=== PATIENT | male | born 1960 | race Hispanic/Latino ===

== ENCOUNTER → 2018-04-20 | Outpatient (REF) | payer MEDICARE ==
[~2018-04-20] MED LIST: ASPIRIN ADULT L81 M1; ASPIRIN EC81 MG PO; CIPRO500 MG PO; EFFIENT5 MG OR; ENALAPRIL2.5 MG PO; FLAGYL500 MG PO; FUROSEMIDE40 MG PO; ISOSORB MONO30 MG PO; LOPRESSOR25 MG PO; LORTAB5 PO; NITROGLYCER0.4 MG PO; NITROSTAT0.4 MG PO; PLAVIX75 MG PO; POT CHLORIDE20 ME3 PO; ZOCOR20 MG PO; ZOFRAN ODT4 MG OR
[2018-04-20 10:14] LABS: HEMATOCRIT 42.9 % (39.0-50.0); HEMOGLOBIN 13.8 g/dl (14.0-18.0); IMMATURE GRANULOCYTES 0.2 % (0.0-5.0); MEAN CORPUSCULAR HGB 26.7 pG CALC (26.0-32.0); MEAN CORPUSCULAR HGB CONC 32.2 g/L CALC (32.0-36.0); NEUT# 2.75 thou/uL (1.82-7.42); RED BLOOD COUNT 5.17 mill/uL (4.70-6.10); RED CELL DISTRI WIDTH 14.4 % (11.5-15.5); URINE BILIRUBIN - DIPSTICK NEGATIVE (NEGATIVE); URINE BLOOD DIPSTICK NEGATIVE (NEGATIVE); URINE COLOR YELLOW; URINE GLUCOSE - DIPSTICK NEGATIVE (NEGATIVE); URINE KETONE NEGATIVE (NEGATIVE); URINE LEUK ESTERASE NEGATIVE (NEGATIVE); URINE NITRITE - DIPSTICK NEGATIVE (Negative); URINE PH 6.5 (4.5-8.0); URINE PROTEIN - DIPSTICK NEGATIVE (NEG-TRACE); URINE UROBILINOGEN - DIPSTICK 0.2 E.U./dL (0.2)
[2018-04-20 11:56] LABS: ALBUMIN 4.5 g/dL (3.2-5.0); ALKALINE PHOSPHATASE 85 u/l (38-126); ANION GAP 17 (6-22 (CALC)); BILIRUBIN, TOTAL 0.9 mg/dL (0.0-1.4); BUN 13 mg/dL (9-20); BUN/CREATININE RATIO 17 (12-20 (CALC)); CALCULATED LDLCHOLESTEROL 71 mg/dL (62-129 (CALC)); CARBON DIOXIDE 22 mmol/l (22-30); CHLORIDE 105 mmol/l (95-108); CHOLESTEROL HDL RATIO 3.5 (<4.4 (CALC)); CREATININE 0.8 mg/dL (0.7-1.3); GFR > 60 ML/MIN (>=60 (CALC)); GFR FOR AFR.AMER. > 60 ML/MIN (>=60 (CALC)); HDL CHOLESTEROL 40 mg/dL (>=40); POTASSIUM 4.5 mmol/l (3.5-5.1); SGOT/AST 30 u/l (17-59); SODIUM 139 mmol/l (137-146); TOTAL CHOLESTEROL 139 mg/dl (0-199); TOTAL PROTEIN 7.4 g/dL (6.3-8.2); TOTAL TRIGLYCERIDES 139 mg/dl (30-149); VLDL CHOLESTROL 28 mg/dl (8-62 (CALC))
== END | disposition home or self-care (01) ==
LOC: LAB 09:29
PROVIDERS: ATTEND Family Medicine
DX: I10 Essential (primary) hypertension (principal); E78.9 Disorder of lipoprotein metabolism, unspecified

== ENCOUNTER 2018-10-28 03:51 | Emergency (ER) | payer MEDICARE ==
[~2018-10-28] VITALS: Ht 160 cm; Wt 80.2 kg
[2018-10-28] MEDS ORDERED: CRESTOR40 MG PO (04:19)
[2018-10-28] MEDS ORDERED: COREG6.25 MG PO (04:20)
[2018-10-28 04:46] LABS: ALBUMIN 4.1 g/dL (3.2-5.0); ALKALINE PHOSPHATASE 78 u/l (38-126); ANION GAP 16 (6-22 (CALC)); BILIRUBIN, TOTAL 1.8 mg/dL (0.0-1.4); BUN 14 mg/dL (9-20); BUN/CREATININE RATIO 22 (12-20 (CALC)); CARBON DIOXIDE 21 mmol/l (22-30); CHLORIDE 107 mmol/l (95-108); CREATININE 0.7 mg/dL (0.7-1.3); GFR > 60 ML/MIN (>=60 (CALC)); GFR FOR AFR.AMER. > 60 ML/MIN (>=60 (CALC)); POTASSIUM 3.9 mmol/l (3.5-5.1); SGOT/AST 23 u/l (17-59); SODIUM 140 mmol/l (137-146); TOTAL PROTEIN 6.8 g/dL (6.3-8.2)
[2018-10-28 04:53] LABS: HEMATOCRIT 40.4 % (39.0-50.0); HEMOGLOBIN 12.8 g/dl (14.0-18.0); IMMATURE GRANULOCYTES 0.2 % (0.0-5.0); MEAN CELL VOLUME 82.4 fL CALC (80.0-100.0); MEAN CORPUSCULAR HGB 26.1 pG CALC (26.0-32.0); MEAN CORPUSCULAR HGB CONC 31.7 g/L CALC (32.0-36.0); NEUT# 2.96 thou/uL (1.82-7.42); RED BLOOD COUNT 4.9 mill/uL (4.70-6.10); RED CELL DISTRI WIDTH 13.8 % (11.5-15.5)
[2018-10-28 04:58] LABS: MYOGLOBIN 30 ng/mL (0 - 121)
[2018-10-28] MEDS ORDERED: TORADOL PO (05:22)
[2018-10-28 05:47] VITALS: BP 115/70
== END 2018-10-28 05:47 | disposition home or self-care (01) ==
LOC: ED 03:51
PROVIDERS: Family Medicine
DX: R07.89 Other chest pain (principal); I10 Essential (primary) hypertension

== ENCOUNTER 2019-07-27 05:44 | Inpatient (IN) | payer MEDICARE ==
[~2019-07-27] VITALS: Ht 160 cm; Wt 90.0 kg
[~2019-07-27 05:44] MED LIST changes: +COREG6.25 MG PO; +CRESTOR40 MG PO; +TORADOL PO
--- NOTE | 2019-07-27 05:44 | NUR ---
PT TO ROOM 15 BY EMS FOR COUGH/FEVER AND GENERAL MALAISE FOR 4 DAYS.
--- NOTE | 2019-07-27 06:00 | NUR ---
RECHECKED TEMP 98.9
--- NOTE | 2019-07-27 06:30 | NUR ---
PT RESTING. IV STARTED. LABS DRAWN. CULTURES X2. FLU/STREP/COVID SWABS OBTAINED. PORT CXR IN PROGRESS.
[2019-07-27 06:48] LABS: HEMATOCRIT 39.1 % (39.0-50.0); HEMOGLOBIN 13.2 g/dl (14.0-18.0); IMMATURE GRANULOCYTES 0.6 % (0.0-5.0); MEAN CORPUSCULAR HGB 26.1 pG CALC (26.0-32.0); MEAN CORPUSCULAR HGB CONC 33.8 g/dL CAL (32.0-36.0); NEUT# 5.58 thou/uL (1.82-7.42); RED BLOOD COUNT 5.05 mill/uL (4.70-6.10); RED CELL DISTRI WIDTH 14.4 % (11.5-15.5)
[2019-07-27 06:49] LABS: MEAN CELL VOLUME 77.4 fL CALC (80.0-100.0)
--- NOTE | 2019-07-27 06:55 | NUR ---
COMPLETED EKG. RESP EVEN AND UNLABORED O2 SAT 96% ON RA. VSS. SKIN PWD. PT STATES HE FEELS SOB WITHOUT DYSPNEA AND PREVIOUSLY HAD PAIN TO LT CHEST, RESOLVED AT THIS TIME.
[2019-07-27 06:59] LABS: ALBUMIN 3.8 g/dL (3.2-5.0); ALKALINE PHOSPHATASE 150 u/l (38-126); ANION GAP 18 (6-22 (CALC)); BILIRUBIN, TOTAL 1.1 mg/dL (0.0-1.4); BUN 15 mg/dL (9-20); BUN/CREATININE RATIO 21 (12-20 (CALC)); CARBON DIOXIDE 23 mmol/l (22-30); CHLORIDE 96 mmol/l (95-108); CREATININE 0.7 mg/dL (0.7-1.3); GFR > 60 ML/MIN (>=60 (CALC)); GFR FOR AFR.AMER. > 60 ML/MIN (>=60 (CALC)); POTASSIUM 3.5 mmol/l (3.5-5.1); SODIUM 133 mmol/l (137-146); TOTAL PROTEIN 6.9 g/dL (6.3-8.2)
[2019-07-27 07:08] LABS: SGOT/AST 188 u/l (17-59)
[2019-07-27 07:11] LABS: MYOGLOBIN 94 ng/mL (0 - 121)
--- NOTE | 2019-07-27 07:20 | NUR ---
URINE OBTAINED. PT IN NO DISTRESS AT THIS TIME
[2019-07-27 07:52] LABS: C-REACTIVE PROTEIN 14.3 mg/dL (0-0.9)
[2019-07-27 07:52] LABS: URINE BLOOD DIPSTICK NEGATIVE (NEGATIVE); URINE GLUCOSE - DIPSTICK NEGATIVE (NEGATIVE); URINE KETONE 15 mg/dL (NEGATIVE); URINE LEUK ESTERASE NEGATIVE (NEGATIVE); URINE NITRITE - DIPSTICK NEGATIVE (Negative); URINE PH 5.5 (4.5-8.0); URINE PROTEIN - DIPSTICK 100 mg/dL (NEG-TRACE); URINE SPECIFIC GRAVITY >=1.030; URINE UROBILINOGEN - DIPSTICK >=8.0 E.U./dL (0.2)
[2019-07-27 07:56] LABS: URINE BILIRUBIN - DIPSTICK NEGATIVE (NEGATIVE); URINE COLOR DK. YELLOW
--- NOTE | 2019-07-27 08:00 | NUR ---
MEDICATED FOR FEVER, INITIATED IV FLUIDS AND ABT ORDERED. PT TRANSFERED AMBULATORY TO FOR CTA , TO RADIOLOGY
[2019-07-27 08:03] LABS: URINE RBC 0-2 RBC/hpf (0-5)
[2019-07-27 08:04] LABS: URINE WBC 0-2 WBC/hpf (0-5)
--- NOTE | 2019-07-27 08:40 | NUR ---
DR ADRIAN AT BEDSIDE TO DISCUSS PENDING ADMIT
[2019-07-27] MEDS ORDERED: SERTRALINE25 MG PO (09:11)
--- NOTE | 2019-07-27 09:12 | NUR ---
REPEAT RECTAL TEMP 100.0. IV FLUISD COMPLETED AND AZITHROMYCIN INFUSION CONTINUES WITHOUT DIFFICULTY. PT AWARE OF ADMIT ADND AGREEABLE. DR DIAS AUTHORIZED PT TO TAKE HOME MEDS THIS AM IN ED.
--- NOTE | 2019-07-27 09:35 | NUR ---
REPORT CALLED TO ANYI SANTOS LPN MS2
--- NOTE | 2019-07-27 09:55 | NUR ---
PT TRANSPORTED TO DC VIA WC IN NO DISTRESS. RESP EVEN AND UNLABORED, NO CHEST PAIN.
--- NOTE | 2019-07-27 09:55 | NUR ---
PT ARRIVED VIA WC WITH STAFF, IV SITE IS FREE FROM REDNESS OR EDEMA. MASK IN PLACE. CONTINUE TO OSBERVE AND MONITOR.
[2019-07-27 10:15] VITALS: BP 103/64
--- NOTE | 2019-07-27 10:17 | NUR ---
ASSESSMENT IS COMPLETED: IV SITE IS FREE FROM REDNESS OR EDEMA. HR IS REG,PULSES ARE STRONG X4, ABD IS SOFT WITH ACTIVE BS. BREATH SOUNDS ARE CLEAR,BILATERALLY. NO C/O SOB. ARMS ARE WARM TO THE TOUCH. AND LEGS ARE COOL. TELE MONITOR IN PLACE. HAD TRACEY RENE FROM OR TRANSLATE OVER THE PHONE FOR INTERPRETATION.
--- NOTE | 2019-07-27 15:56 | NUR ---
PT C/O BEING COLD. TEMP ORAL WAS 98.8 AND THEN TP WAS 100.1 HAS A MOIST COUGH HEARD BY THE CREDIT CONTROL CLERK.
[2019-07-27 16:07] VITALS: BP 148/72
--- NOTE | 2019-07-27 16:30 | NUR ---
PT GIVEN MEDICATION FOR FEVER. HAS A "WET SOUNDING COUGH " NOTHING COMING UP. CONTINUE TO OSBERVE AND MONITOR.
[2019-07-27 19:39] VITALS: BP 137/66
[2019-07-28] VITALS (8 sets, daily range): BP systolic 101–142; BP diastolic 54–86
[2019-07-28 07:37] LABS: HEMATOCRIT 38.9 % (39.0-50.0); IMMATURE GRANULOCYTES 1.4 % (0.0-5.0); MEAN CORPUSCULAR HGB 26.1 pG CALC (26.0-32.0); MEAN CORPUSCULAR HGB CONC 33.4 g/dL CAL (32.0-36.0); NEUT# 9.4 thou/uL (1.82-7.42); RED BLOOD COUNT 4.99 mill/uL (4.70-6.10); RED CELL DISTRI WIDTH 14.3 % (11.5-15.5)
--- NOTE | 2019-07-28 08:05 | NUR ---
ASSESSMENT IS COMPLETED; IV SITE IS FREE FROM REDNESS OR EDEMA. HR IS REG,PULSES ARE STRONG X4, ABD IS SOFT WITH ACTIVE BS. BREATH SOUNDS ARE CLEAR AND DIMINISHED. TELE MONITOR IN PLACE. CONTINUE TO OBSERVE AND MONITOR.
[2019-07-28 08:56] LABS: ALBUMIN 3.4 g/dL (3.2-5.0); ALKALINE PHOSPHATASE 203 u/l (38-126); ANION GAP 15 (6-22 (CALC)); BUN 14 mg/dL (9-20); BUN/CREATININE RATIO 22 (12-20 (CALC)); CARBON DIOXIDE 22 mmol/l (22-30); CHLORIDE 97 mmol/l (95-108); CREATININE 0.6 mg/dL (0.7-1.3); GFR > 60 ML/MIN (>=60 (CALC)); GFR FOR AFR.AMER. > 60 ML/MIN (>=60 (CALC)); POTASSIUM 3.3 mmol/l (3.5-5.1); SODIUM 130 mmol/l (137-146); TOTAL PROTEIN 6.5 g/dL (6.3-8.2)
[2019-07-28 09:19] LABS: C-REACTIVE PROTEIN 18.5 mg/dL (0-0.9); SGOT/AST 395 u/l (17-59)
--- NOTE | 2019-07-28 12:45 | NUR ---
PT IS RESTING IN BED WITH NO DISTRESS NOTED. IV SITE IS FREE FROM REDNESS OR EDEMA
--- NOTE | 2019-07-28 20:45 | NUR ---
PT MEDICATED ORDERS PROVIDE FOR PM MEDICATIONS. PERSONAL CARE SERVICE PROVIDER ON PHONE EXPLAINED MEDICATIONS GIVEN, PT VERBALIZED UNDERSTANDING. PT DENIES ANY PAIN/N/V AT THIS TIME. LUNG SOUNDS ARE MILD WHEEZE THROUGHOUT. BREATHING IS NON-LABORED AND REGULAR. NO S/O DISTRESS. WILL CONTINUE TO MONITOR, PT INSTRUCTED TO CALL IF ANY NEEDS ARISE. PT DENIED ANY NEEDS AT THIS TIME.
--- NOTE | 2019-07-28 21:35 | NUR ---
PHYSICIAN CALLED INSTRUCTED PATIENTS TO REMAIN IN PRONE POSITION. UPON ENTERING ROOM, QUILLER TENDER WAS ADJUSTED FOR CONTACT AND AUTOMATIC FANCY MACHINE OPERATOR EXPLAINED TO PT THAT THE PHYSICIAN REQUESTED HE LAY IN PRONE POSITION MUCH POSSIBLE TO ALLOW IMPROVEMENT OF OXYGEN INTAKE. PT EXPRESSED UNDERSTANDING AND TURNED TO A PRONE POSITION. BALANCE WHEEL SCREW HOLE TAPPER ASKED AUTOMATIC FANCY MACHINE OPERATOR TO ASK PT IF HE FELT OKAY AND WAS ABLE TO BREATHE OKAY IN THAT POSITION, HE VERBALIZED "YES." PT LEFT IN PRONE POSITION IN BED W/LIGHTS TURNED OFF PER REQUEST FOR COMFORT. CALL LIGHT IS W/IN REACH.
--- NOTE | 2019-07-29 03:15 | NUR ---
PT SLEEPING ON SIDE, NO S/O DISTRESS NOTED.
[2019-07-29 04:00] VITALS: BP 111/49
--- NOTE | 2019-07-29 04:22 | NUR ---
PT REPORTED TO CLAIMS COUNSEL THAT HE HAS NOT URINATED SINCE 8PM EARLIER LAST NIGHT. PT WAS ASKED TO GET UP AND ATTEMPT TO URINATE W/ASSISTANCE, PT REFUSED, STATING "NO, I DON'T NEED TO GO NOW." [facility] WILL FOLLOW-UP AND ASK PT TO ATTEMPT TO URINATE AGAIN AND EDUCATE W/ASSISTANCE OF GLOBAL PROGRAM MANAGER OF NEED/RISK.
[2019-07-29 06:32] LABS: HEMATOCRIT 38.3 % (39.0-50.0); HEMOGLOBIN 12.9 g/dl (14.0-18.0); MEAN CELL VOLUME 77.7 fL CALC (80.0-100.0); MEAN CORPUSCULAR HGB 26.2 pG CALC (26.0-32.0); MEAN CORPUSCULAR HGB CONC 33.7 g/dL CAL (32.0-36.0); NEUT# 10.68 thou/uL (1.82-7.42); RED BLOOD COUNT 4.93 mill/uL (4.70-6.10); RED CELL DISTRI WIDTH 14.4 % (11.5-15.5)
[2019-07-29 06:52] LABS: ALBUMIN 3.2 g/dL (3.2-5.0); ALKALINE PHOSPHATASE 220 u/l (38-126); ANION GAP 14 (6-22 (CALC)); BILIRUBIN, TOTAL 0.9 mg/dL (0.0-1.4); BUN 14 mg/dL (9-20); BUN/CREATININE RATIO 21 (12-20 (CALC)); CARBON DIOXIDE 23 mmol/l (22-30); CHLORIDE 97 mmol/l (95-108); CREATININE 0.6 mg/dL (0.7-1.3); GFR > 60 ML/MIN (>=60 (CALC)); GFR FOR AFR.AMER. > 60 ML/MIN (>=60 (CALC)); POTASSIUM 3.7 mmol/l (3.5-5.1); SGOT/AST 239 u/l (17-59); SODIUM 131 mmol/l (137-146); TOTAL PROTEIN 6.1 g/dL (6.3-8.2)
[2019-07-29 07:18] LABS: C-REACTIVE PROTEIN 23.1 mg/dL (0-0.9)
[2019-07-29 07:57] VITALS: BP 119/61
--- NOTE | 2019-07-29 09:00 | NUR ---
PT SEEN RESTING IN THE BED, NO DISTRESS. PT SPEAKS TAJIK ONLY. LUNGS CLEAR, DIMINISHED THROUGHOUT, RA. NO REPORT OF SHORTNESS OF BREATH.
[2019-07-29 11:36] VITALS: BP 118/71
--- NOTE | 2019-07-29 12:45 | NUR ---
PT SEEN BY DR BISHOP THIS MORNING, NO CHANGE IN STATUS, NO NEW ORDERS. PT REMAINS AT REST IN THE BED.
--- NOTE | 2019-07-29 16:21 | NUR ---
PT WITHOUT CHANGE IN STATUS, RESTS IN THE BED.
[2019-07-29 16:26] VITALS: BP 138/62
[2019-07-29 19:24] VITALS: BP 123/60
--- NOTE | 2019-07-29 20:09 | NUR ---
ASSESSMENT COMPLETED. IV SITE PATENT AND SL, FLUSHES WELL. NO DISTRESS NOTED. PRN SONATA GIVEN AND SCHED MEDS; DENIES FURTHER NEEDS. VSS. ENCOURAGED TO CALL FOR ANY NEEDS. PT. REPORTS BM TODAY EARLIER IN THE DAY. ENCOURAGED TO CALL FOR ANY AND ALL NEEDS. CALL LIGHT IS IN REACH. WILL CONTINUE TO MONITOR.
[2019-07-29 23:45] VITALS: BP 117/76
--- NOTE | 2019-07-30 00:12 | NUR ---
PT. RESTING IN BED ON RIGHT SIDE WITH NO DISTRESS NOTED; DENIES NEEDS/PAIN. ENCOURAGED TO CALL FOR ANY NEEDS. CALL LIGHT IS IN REACH. WILL CONTINUE TO MONITOR.
[2019-07-30 03:34] VITALS: BP 106/57
--- NOTE | 2019-07-30 03:34 | NUR ---
VSS. NO DISTRESS NOTED; SPO2 91% ON RA; WILL CONTINUE TO MONITOR. VOICES NO CONCERNS. ENCOURAGED TO CALL FOR ANY NEEDS. CALL LIGHT IS IN REACH.
[2019-07-30 07:52] VITALS: BP 122/65
--- NOTE | 2019-07-30 10:04 | NUR ---
PT AMBULATORY IN THE ROOM, NO DISTRESS, NO COMPLAINTS.
[2019-07-30 11:37] VITALS: BP 105/65
--- NOTE | 2019-07-30 15:23 | NUR ---
PT AMBULATORY TO BR WITH STEADY GAIT. NO COMPLAINTS, NO DISTRESS.
[2019-07-30 15:43] VITALS: BP 146/64
--- NOTE | 2019-07-30 18:02 | NUR ---
PT BEFORE, NO CHANGE. FAMILY/FRIENDS UPDATED ON PHONE.
[2019-07-30 18:55] VITALS: BP 121/73
--- NOTE | 2019-07-30 20:22 | NUR ---
ASSESSMENT COMPLETED. IV SITE PATENT AND SL. NO DISTRESS NOTED; DENIES PAIN. O2 INFUSING PER NC @3LITERS/MIN AND SPO2 94% AT THIS TIME. SCHED MEDS GIVEN ALONG WITH PRN SONATA TO ASSIST WITH SLEEP. ENCOURAGED TO CALL FOR ANY NEEDS. CALL LIGHT IS IN REACH. WILL CONTINUE TO MONITOR.
[2019-07-31] VITALS (18 sets, daily range): BP systolic 103–143; BP diastolic 51–82
--- NOTE | 2019-07-31 00:50 | NUR ---
VSS. NO DISTRESS NOTED; DENIES NEEDS. CALL LIGHT IS IN REACH.
--- NOTE | 2019-07-31 05:25 | NUR ---
SPO2 AT 4LITERS/MIN TO INCREASE SPO2 UP TO 92%. INCENTIVE SPIROMETER GIVEN AND EDUCATION PROVIDED. PT. ABLE TO PULL 1250 AND GOAL SET TO 1500.
[2019-07-31 05:55] LABS: HEMATOCRIT 40.3 % (39.0-50.0); HEMOGLOBIN 13.1 g/dl (14.0-18.0); IMMATURE GRANULOCYTES 0.6 % (0.0-5.0); MEAN CORPUSCULAR HGB 25.7 pG CALC (26.0-32.0); MEAN CORPUSCULAR HGB CONC 32.5 g/dL CAL (32.0-36.0); NEUT# 5.41 thou/uL (1.82-7.42); RED BLOOD COUNT 5.1 mill/uL (4.70-6.10); RED CELL DISTRI WIDTH 14.5 % (11.5-15.5)
[2019-07-31 06:07] LABS: ALBUMIN 3.2 g/dL (3.2-5.0); ANION GAP 15 (6-22 (CALC)); BILIRUBIN, TOTAL 1.2 mg/dL (0.0-1.4); BUN 18 mg/dL (9-20); BUN/CREATININE RATIO 31 (12-20 (CALC)); CARBON DIOXIDE 22 mmol/l (22-30); CHLORIDE 99 mmol/l (95-108); CREATININE 0.6 mg/dL (0.7-1.3); GFR > 60 ML/MIN (>=60 (CALC)); GFR FOR AFR.AMER. > 60 ML/MIN (>=60 (CALC)); POTASSIUM 3.9 mmol/l (3.5-5.1); SODIUM 131 mmol/l (137-146); TOTAL PROTEIN 6.4 g/dL (6.3-8.2)
[2019-07-31 06:14] LABS: ALKALINE PHOSPHATASE 343 u/l (38-126); SGOT/AST 790 u/l (17-59)
[2019-07-31 06:45] LABS: C-REACTIVE PROTEIN 23.2 mg/dL (0-0.9)
--- NOTE | 2019-07-31 08:06 | NUR ---
PT RESTING IN BED, NO SIGNS OF DISTRESS NOTED, RESP EVEN AND UNLABORED. DISCUSSED POC, MEDICATED PER APR. PT BREATHING SHALLOW, ENCOURAGED DEEP BREATHING AND COUGH EXCERSIZE. IS AT BEDSIDE ENCOURAGED IT'S USE. PT ON 02 4L SATS 88% INCREASED O2 TO 4 1/2 L SPO2 INCREASED TO 90%. PT STATES WHEN HE TAKES A DEEP BREATH HE COUGHS. ASSESSMENT COMPLETED, BREAKFAST GIVEN. CALL LIGHT IN REACH,CONTINUE TO MONITOR.
--- NOTE | 2019-07-31 11:00 | NUR ---
PT SATS 93% ON , TO SEE PT.
--- NOTE | 2019-07-31 11:57 | NUR ---
LUNCH TRAY GIVEN TO PT, PT STATES HE IS NOT HUNGRY. DISCUSSED WITH PT HE IS GOING TO BE TRANSFERRED TO ICU, NO SIGNS OF DISTRESS NOTED, RESP EVEN AND UNLABORED. CALL LIGHT IN REACH,CONTINUE TO MONITOR.
--- NOTE | 2019-07-31 12:10 | NUR ---
RECIEVED REPORT FROM CATARINA MOSS.
--- NOTE | 2019-07-31 12:49 | NUR ---
PT IN BED, DISCUSSED TRANSFER, PT AGREES. BELONGINGS PACKED AND PT TRANSPORTED TO ICU VIA WHEELCHAIR.
--- NOTE | 2019-07-31 12:52 | NUR ---
PT TRANSFERRED FROM MS2 BED 290 TO ICU BED 1. PT TRANSPORTED VIA W/C, PT AMBULATED TO BED WITH STEADY GAIT. A&OX3, ABLE TO MAKE NEEDS KNOWN. ORIENTED TO UNIT, ROOM AND CALL LIGHT SYSTEM. URINAL AT BEDSIDE. SR ON TELEMETRY, HR 71. RESPIRATIONS SHALLOW, SA02@93% ON 4.5LPM VIA NC. PT LS CLEAR/DIMINISHED, ABDOMEN SOFT, NON-TENDER, BSX4 ACTIVE, LBM 5-29-20. PT PLACED IN PRONE POSITION. CATARINA MOSS AT BEDSIDE TO TRANSLATE. CALL LIGHT IN REACH. WILL MONITOR.
--- NOTE | 2019-07-31 13:00 | NUR ---
DR. GODOY CALLED, UPDATE GIVEN.
--- NOTE | 2019-07-31 14:36 | NUR ---
PT CONTINUES RESTING IN PRONE POSITION IN BED, SAO2@94% ON 4.5LPM VIA NC, RR-18. PT REMAINS SR WITH PVC'S ON TELEMETRY, HR 78. CALL LIGHT IN REACH. WILL MONITOR.
--- NOTE | 2019-07-31 16:49 | NUR ---
CATARINA MOSS AT BEDSIDE TO TRANSLATE . PT EDUCATED ON DEEP BREATHING TECHNIQUE. PT RR-44, SA02@88% ON 4.5LPM VIA NC. PT STATED WHEN HE TAKES DEEP BREATHS HE COUGHS AND IT HURTS. PT ENCOURAGED TO DEEP BREATHE AND COUGH. PT VERBALIZED UNDERSTANDING. CALL LIGHT IN REACH. WILL MONITOR.
--- NOTE | 2019-07-31 17:31 | NUR ---
DIETARY ON UNIT, DINNER TRAY SET UP. PT DECLINED MEAL AT THIS TIME. PT REMAINS IN THE PRONE POSITION, SA02@91%, RR- REMAINS 32
--- NOTE | 2019-07-31 18:22 | NUR ---
PT FAMILY BROUGHT IN FOOD, DELIVERED TO PT AT BEDSIDE.
--- NOTE | 2019-07-31 20:55 | NUR ---
PATIENT IS ALERT AND ORIENTED X4. NURSING ASSESSMENT PERFORMED. PATIENT IS ON 4.5 L/MIN NC. WHEN PATIENT BEGINS TO COUGH, RESPIRATIONS BECOME TACHYPNEIC AND SHALLOW. ATTEMPTED TO EDUCATE ON PURED LIP BREATHING, PATIENT NEEDS REINFORCEMENT, ALSO REMINED PT TO USE IS, PATIENT DID DEMONSTRATE AND DID NOT MEET GOAL OF 1500. PT COUGHS UP SMALL AMOUNTS OF WHITE THIN PHLEGM, SOME REDNESS NOTED ON PHLEGM. IV X1 INTACT AND SALINE LOCKED. SR ON TELEMETRY WITH PVC'S, TRIGEMINY AT TIMES. POC DISCUSSED WITH PATIENT WELL MEDICATIONS HE IS RECEIVING. NO C/O PAIN. ENCOURAGED PRONE POSITIONING. TEMP 99.6 DEGREES F. BP WNL. SELF REPOSITIONS, URINAL PLACED AT BEDSIDE. PT REPORTS HE HAS BEEN EATING TTH FRUIT HIS FAMILY BROUGHT HIM WELL THE JUICES. PT REQUESTED WATER, PROVIDED. ENCOURAGED HYDRATION AND TO EAT HIS MEALS. 2127: O2 INCREASED TO 5 L/MIN, PT WAS SATING 88%. NOW SATS 90%-93%. NO OTHER NEEDS AT THIS TIME. CALL LIGHT WITHIN REACH.
[2019-08-01] VITALS (20 sets, daily range): BP systolic 96–146; BP diastolic 53–76
--- NOTE | 2019-08-01 01:23 | NUR ---
CHECKED PT'S TEMP, AFEBRILE. WEANED 02 SUPPORT TO 4 L/MIN NC. SATS 92%.
--- NOTE | 2019-08-01 01:24 | NUR ---
PATIENT LAYS PRONE. PT DENIES PAIN. PT REPORTS HE WAS BEGINNING TO FALL ASLEEP. PT O2 WEANED TO 4 L/MIN SATS 92%.
--- NOTE | 2019-08-01 05:30 | NUR ---
PATIENT WAS ABLE TO USE BSC, DOES BECOME SOB AND TACHYPNEIC. HAD A MEDIUM SOFT BM. DID NOTICE URINE WAS RED. PATIENT HAD A LARGE AMOUNT OF URINE ON BED FOR WHICH HE REPORTS THE URINAL TIPPED OVER. LINENS WERE CHANGED, NEW GOWN PROVIDED. BLOOD WORK DRAWN. PT NOW LAYS PRONE.
[2019-08-01 05:55] LABS: HEMOGLOBIN 13.1 g/dl (14.0-18.0); IMMATURE GRANULOCYTES 1.1 % (0.0-5.0); MEAN CELL VOLUME 78.3 fL CALC (80.0-100.0); MEAN CORPUSCULAR HGB 25.6 pG CALC (26.0-32.0); MEAN CORPUSCULAR HGB CONC 32.8 g/dL CAL (32.0-36.0); NEUT# 5.27 thou/uL (1.82-7.42); RED BLOOD COUNT 5.11 mill/uL (4.70-6.10); RED CELL DISTRI WIDTH 14.3 % (11.5-15.5)
[2019-08-01 06:15] LABS: ANION GAP 13 (6-22 (CALC)); BUN 13 mg/dL (9-20); BUN/CREATININE RATIO 22 (12-20 (CALC)); CARBON DIOXIDE 23 mmol/l (22-30); CHLORIDE 98 mmol/l (95-108); CREATININE 0.6 mg/dL (0.7-1.3); GFR > 60 ML/MIN (>=60 (CALC)); GFR FOR AFR.AMER. > 60 ML/MIN (>=60 (CALC)); MAGNESIUM 2.3 mg/dL (1.6-2.3); POTASSIUM 3.3 mmol/l (3.5-5.1); SODIUM 131 mmol/l (137-146)
--- NOTE | 2019-08-01 06:45 | NUR ---
REPORT RECEIVED FROM JAS HEATON
--- NOTE | 2019-08-01 07:00 | NUR ---
PT RESTING IN BED AWAKE AND PRONE. PT IS ALERT AND ORIENTED X3. SHIFT ASSESSMENT COMPLETED AT THIS TIME. Cher CRABTREE INTERPRETTED FOR ASSESSMENT. IV PATENT X1. CALL LIGHT IN REACH. WILL CONTINUE TO MONITOR.
--- NOTE | 2019-08-01 07:55 | NUR ---
PT SET UP FOR AM MEAL
--- NOTE | 2019-08-01 09:18 | NUR ---
DR BISHOP AT BEDSIDE AT THIS TIME.
--- NOTE | 2019-08-01 09:56 | NUR ---
PT RESTING IN BED PRONE. RESP ARE EVEN AND UNLABORED. NO DISTRESS NOTED. CALL LIGHT IN REACH. WILL CONTINUE TO MONITOR.
--- NOTE | 2019-08-01 10:22 | NUR ---
INFECTIOUS DISEASE CONSULT COMPLETED WITH DR CONNELLY VIA PHONE DUE TO TECHNICAL DIFFICULIES WITH TQRSD
--- NOTE | 2019-08-01 11:28 | NUR ---
#20 REMOVED FROM LAC. #20 PLACED IN RAC. TB QUANTIFERON OBTAINED AND HEPATITIS B ANTIGEN OBTAINED AND SENT TO LAB. PT TOLERATED WELL. ID RECOMMENDATION CALLED TO DR BISHOP. NEW ORDERS OBTAINED.
--- NOTE | 2019-08-01 12:28 | NUR ---
FAMILY MEMBER CALLED REGISTRATION AND EXPRESSED CONCERNED THAT PATIENT STATED HE DID NOT KNOW WHAT WAS GOING ON. THIS UNIT SECY PHONED [employer] INTERPRETATION LINE ID # [id number] RAFAL. PATIENT QUESTION "AM I DOING OK" THIS UNIT SECY EXPLAINED IN FULL DETAIL PATIENT STATUS WITH UPCOMING TESTS. PATIENT REQUESTED THAT THIS UNIT SECY NOTIFY HIS FAMILY ASKED IF THE FAMILY SPEAKS ESTONIAN. PATIENT RESPONDED WITH NO ONLY [id number]. EXPLAINED THAT I COULD NOT NOTIFY DUE TO I AM ONLY ESTONIAN SPEAKING. EXPLAINED THAT HE COULD NOTIFY WITH ALL THE INFORMATION GIVEN. HE HAS A CELL PHONE AND CAN USE THE HOSPITAL PROVIDED PHONE AT ANY TIME. AND IS ABLE TO NOTIFY FAMILY. PT VERBALIZED UNDERSTANDING.
--- NOTE | 2019-08-01 13:15 | NUR ---
PT RESTING PRONE O2 SATS 84 % ON 4L. INCREASED O2 TO 6L. O2 SATS ONLY TO 88% PT THEN TURNED OVER SUPINE AND HOB RAISED TO 90 DEGREES. O2 SATS INCREASED TO 90-92%. DR BISHOP NOTIFIED. ABG ORDERED AT THIS TIME.
--- NOTE | 2019-08-01 13:30 | NUR ---
RADIOLOGY AT BEDSIDE FOR ULTRASOUND.
--- NOTE | 2019-08-01 13:35 | NUR ---
RT AT BEDSIDE FOR ABG AT THIS TIME.
--- NOTE | 2019-08-01 13:55 | NUR ---
DR BISHOP NOTIFIED OF ABG RESULTS AT THIS TIME. NO NEW ORDERS RECEIVED.
--- NOTE | 2019-08-01 14:19 | NUR ---
PT RESTING IN HIGH FOWLERS ON 6 L O2 NC. PT IS TACHYPNEIC RESP RATE 30-40S. SHALLOW BREATHING. PT ENCOURAGED TO TAKE SLOW DEEP BREATHS. CALL LIGHT IN REACH. WILL CONTINUE TO MONITOR.
--- NOTE | 2019-08-01 16:18 | NUR ---
PT SITTING UP IN BED WATCHING TV. RESP ARE EVEN AND UNLABORED. NO DISTRESS NOTED. CALL LIGHT IN REACH. WILL CONTINUE TO MONITOR.
--- NOTE | 2019-08-01 17:30 | NUR ---
PT SET UP FOR PM MEAL.
--- NOTE | 2019-08-01 17:46 | NUR ---
[employer] LANGUAGE LINE CALLED #[phone] BELL. PT DENIED SOB ALLTHOUGH O2 SATS 87%. PT VOIDED 550CC FELISA URINE.
--- NOTE | 2019-08-01 20:00 | NUR ---
PATIENT SLEEPING ON ROUNDS. RESP NON-LABORED. VSS. O2 SAT 94% MONITOR SR. SHIFT ASSESSMENT DEFERRED.
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
--- NOTE | 2019-08-01 22:00 | NUR ---
RESTING WITH EYES CLOSED. RESP NON-LABORED. O2 SAT 96-98% WHILE PATIENT LYING PRONE. VSS. SR ON MONITOR.
--- NOTE | 2019-08-01 23:00 | NUR ---
CONTINUES RESTING QUIETLY. VSS.
[2019-08-02] VITALS (17 sets, daily range): BP systolic 95–160; BP diastolic 46–81
--- NOTE | 2019-08-02 00:05 | NUR ---
AWAKENS TO NAME. RESP SHALLOW. SALINE LOCK FLUSHED AND PATENT. O2 SAT 92-94% WHEN PATIENT RESTING SUPINE.
--- NOTE | 2019-08-02 00:45 | NUR ---
IV ANTIBIOTIC INFUSED. PATIENT TURNED PRONE AGAIN AT THIS TIME.
--- NOTE | 2019-08-02 02:05 | NUR ---
VSS. O2 SAT 97% SB-SR ON MONITOR.
--- NOTE | 2019-08-02 03:00 | NUR ---
RESTING IN PRONE POSITION. O2 CONTINUES AT 6 L NC. O2 SAT 98%
--- NOTE | 2019-08-02 04:00 | NUR ---
NO CHANGES TO REPORT. VSS. SB-SR ON MONITOR.
--- NOTE | 2019-08-02 04:45 | NUR ---
MAYRA AWAKENS EASILY TO NAME. BLOOD DRAWN VIA PERIPHERAL STICK FOR AM LABS ORDERED.
--- NOTE | 2019-08-02 06:00 | NUR ---
ASSISTED PATIENT WITH BED BATH. UP TO BEDSIDE CHAIR. LINEN CHANGED. IS IN REACH, PATIENT REMINDED TO USE. OCC COUGH, THIN WHITE SECRETIONS. VSS. SB-SR ON MONITOR. SALINE LOCK MAINTAINED IN RAC.
--- NOTE | 2019-08-02 06:45 | NUR ---
REPORT RECEIVED FROM TEO HEATON
[2019-08-02 06:47] LABS: HEMATOCRIT 39.9 % (39.0-50.0); MEAN CELL VOLUME 77.9 fL CALC (80.0-100.0); MEAN CORPUSCULAR HGB 25.4 pG CALC (26.0-32.0); MEAN CORPUSCULAR HGB CONC 32.6 g/dL CAL (32.0-36.0); NEUT# 5.04 thou/uL (1.82-7.42); RED BLOOD COUNT 5.12 mill/uL (4.70-6.10); RED CELL DISTRI WIDTH 14.5 % (11.5-15.5)
[2019-08-02 07:09] LABS: ALBUMIN 2.9 g/dL (3.2-5.0); ALKALINE PHOSPHATASE 338 u/l (38-126); BILIRUBIN, TOTAL 0.9 mg/dL (0.0-1.4); BUN 18 mg/dL (9-20); BUN/CREATININE RATIO 34 (12-20 (CALC)); CARBON DIOXIDE 23 mmol/l (22-30); CHLORIDE 101 mmol/l (95-108); CREATININE 0.5 mg/dL (0.7-1.3); GFR > 60 ML/MIN (>=60 (CALC)); GFR FOR AFR.AMER. > 60 ML/MIN (>=60 (CALC)); SODIUM 133 mmol/l (137-146)
--- NOTE | 2019-08-02 07:15 | NUR ---
PT SITTING UP IN CHAIR AT BEDSIDE AT THIS TIME. [employer]AGE LINE USED FOR INTERPRETATION SERVICES [id number]. PT IS ALERT AND ORIENTED X3. SHIFT ASSESSMENT COMPLETED AT THIS TIME. IV PATENT X1. CALL LIGHT IN REACH. WILL CONTINUE TO MONITOR.
[2019-08-02 07:28] LABS: ANION GAP 14 (6-22 (CALC)); POTASSIUM 4.5 mmol/l (3.5-5.1); SGOT/AST 184 u/l (17-59)
[2019-08-02 07:29] LABS: C-REACTIVE PROTEIN 24.4 mg/dL (0-0.9)
--- NOTE | 2019-08-02 07:38 | NUR ---
PT SET UP FOR AM MEAL AT THIS TIME.
--- NOTE | 2019-08-02 09:24 | NUR ---
DR BISHOP AT BEDSIDE AT THIS TIME.
--- NOTE | 2019-08-02 09:52 | NUR ---
PT SITTING UP IN CHAIR AT BEDSIDE. RESP ARE EVEN AND UNLABORED. NO DISTRESS NOTED. CALL LIGHT IN REACH. WILL CONTINUE TO MONITOR.
--- NOTE | 2019-08-02 11:20 | NUR ---
PT SET UP FOR NOON MEAL.
--- NOTE | 2019-08-02 12:10 | NUR ---
PT ASSISTED BACK TO BED AT THIS TIME AND PLACED IN PRONE POSITION. CALL LIGHT IN REACH. WILL CONTINUE TO MONITOR.
--- NOTE | 2019-08-02 14:00 | NUR ---
PT RESTING IN BED PRONE. RESP ARE EVEN AND UNLABORED. NO DISTRESS NOTED. CALL LIGHT IN REACH. WILL CONTINUE TO MONITOR.
--- NOTE | 2019-08-02 16:00 | NUR ---
PT RESTING IN BED ON SIDE WATCHING TV. RESP ARE EVEN AND UNLABORED. NO DISTRESS NOTED. CALL LIGHT IN REACH. WILL CONTINUE TO MONIOTR.
--- NOTE | 2019-08-02 17:35 | NUR ---
PT SET UP FOR PM MEAL
--- NOTE | 2019-08-02 17:50 | NUR ---
emergency medical technician at bedside
--- NOTE | 2019-08-02 19:45 | NUR ---
AWAKE ON ROUNDS. RESTING IN BED, WATCHING TV. RESP NO-LABORED. USING O2 AT 6 L NC. O2 SAT 93% BREATH SOUNDS CLEAR, DIMINISHED THROUGHOUT. OCC LOSE COUGH, EXPECTORATES THIN WHITE SECRETIONS. SALINE LOCK INTACT IN RAC, SITE BENIGN. SHIFT ASSESSMENT COMPLETED. NO NEEDS IDENTIFIED AT THIS TIME. MONITOR SR. CALL WHEATLEY IN REACH.
--- NOTE | 2019-08-02 21:30 | NUR ---
SALINE LOCK FLUSHED AND PATENT.
--- NOTE | 2019-08-02 22:00 | NUR ---
RESTING WITH EYES CLOSED. RESP NON-LABORED.
[2019-08-03] VITALS (18 sets, daily range): BP systolic 101–208; BP diastolic 41–79
--- NOTE | 2019-08-03 00:04 | NUR ---
RESTING WITH EYES CLOSED, EASILY AWAKENED. DENIES DIFFICULTY BREATHING OR PAIN. VSS. O2 SAT 94-95% REMINDED PATIENT MAKE POSITION CHANGES ANIN BED AND TO LIE PRONE OFTEN HE IS ABLE.
--- NOTE | 2019-08-03 02:00 | NUR ---
SLEEPING RESP NON-LABORED AT REST. SB-SR ON MONITOR. O2 SATS MAINTAINING 96-99% PATIENT LYING IN PRONE POSITION.
--- NOTE | 2019-08-03 04:00 | NUR ---
NO CHANGES TO REPORT. VSS. SB ON MONITOR. REMAINS RESTING IN PRONE POSTION.
--- NOTE | 2019-08-03 05:45 | NUR ---
AWAKENS TO NAME. BLOOD DRAWN FOR AM LABS ORDERED.
--- NOTE | 2019-08-03 06:00 | NUR ---
RAC SALINE LOCK FLUSHED AND PATENT. SB ON MONITOR.
[2019-08-03 06:19] LABS: HEMATOCRIT 39.5 % (39.0-50.0); HEMOGLOBIN 12.9 g/dl (14.0-18.0); IMMATURE GRANULOCYTES 1.2 % (0.0-5.0); MEAN CELL VOLUME 79.2 fL CALC (80.0-100.0); MEAN CORPUSCULAR HGB 25.9 pG CALC (26.0-32.0); MEAN CORPUSCULAR HGB CONC 32.7 g/dL CAL (32.0-36.0); NEUT# 8.22 thou/uL (1.82-7.42); RED BLOOD COUNT 4.99 mill/uL (4.70-6.10); RED CELL DISTRI WIDTH 14.1 % (11.5-15.5)
[2019-08-03 06:45] LABS: ALBUMIN 2.9 g/dL (3.2-5.0); ALKALINE PHOSPHATASE 276 u/l (38-126); ANION GAP 11 (6-22 (CALC)); BILIRUBIN, TOTAL 0.7 mg/dL (0.0-1.4); BUN 20 mg/dL (9-20); BUN/CREATININE RATIO 37 (12-20 (CALC)); C-REACTIVE PROTEIN 7.4 mg/dL (0-0.9); CARBON DIOXIDE 24 mmol/l (22-30); CHLORIDE 104 mmol/l (95-108); CREATININE 0.5 mg/dL (0.7-1.3); GFR > 60 ML/MIN (>=60 (CALC)); GFR FOR AFR.AMER. > 60 ML/MIN (>=60 (CALC)); POTASSIUM 4.2 mmol/l (3.5-5.1); SGOT/AST 108 u/l (17-59); SODIUM 135 mmol/l (137-146)
--- NOTE | 2019-08-03 07:25 | NUR ---
@BEDSIDE TO DELIVER BREAKFAST. PT AWAKE/ALERT. DID NOT WANT TO SIT UP IN CHAIR, PT EATING BREAKFAST IN BED.
--- NOTE | 2019-08-03 09:15 | NUR ---
@BEDSIDE TO ASSIST PT UP TO BSC FOR BM. PT STEADY ON HIS FEET.
--- NOTE | 2019-08-03 09:35 | NUR ---
DR BISHOP @ BEDSIDE, ASSESSING PT.
--- NOTE | 2019-08-03 10:16 | NUR ---
@BEDSIDE TO GIVE AM MEDS. PT EDUCATED ON INDICATION.
--- NOTE | 2019-08-03 11:24 | NUR ---
PHSYICAL THERAPY @BEDSIDE FOR CPT. LISA SCHULTZ EMPLOYEE, TRANSLATING.
--- NOTE | 2019-08-03 11:54 | NUR ---
@BEDSIDE TO DELIVER LUNCH & START IV ABX. PT KEEPS ASKING ABOUT "HOW HE LOOKS". FREQUENT PRODUCTIVE COUGH, SPITTING UP THIN WHITE MUCOS IN EMESIS BAG. COUGH BETTER AFTER ROBOTUSSIN. BREATHING EVEN/UNLABORED. WILL CONTINUE TO MONITOR.
--- NOTE | 2019-08-03 14:16 | NUR ---
@BEDSIDE TO MEDICATE FOR COUGH. PT ALERT, APPEARS HEALTHY. BREATHING EVEN/UNLABORED. VSS. PT STATES HE LIKED THE FRIED CHICKEN FOR LUNCH. CALLBELL W/IN REACH. WILL CONTINUE TO MONITOR.
--- NOTE | 2019-08-03 15:57 | NUR ---
PT LAYING IN BED ON BACK, WATCHING TV. O2 96% ON 6L NC. NO S/S OF DISTRESS AT THIS TIME. WILL CONTINUE TO MONITOR.
--- NOTE | 2019-08-03 18:10 | NUR ---
@BEDSIDE TO START IV ABX & DELIVER DINNER. PT GIVEN LETTER IN [place] FROM PHYSICAL THERAPIST TO EDUCATE ABOUT PRONE POSITION BENEFITS. NO NEEDS/CONCERNS AT THIS TIME.
--- NOTE | 2019-08-03 20:45 | NUR ---
UPON ENTERING ROOM PT FOUND RESTING IN BED, WATCHING TV. NO APPARENT DISTRESS. PHYSICAL ASSESMENT COMPLETE. PLAN OF CARE REVIEWED. PT VERBALIZES UNDERSTANDING AND DENIES QUESTIONS. MEDICATIONS ADMINISTERED PER APR. PRN ROBITUSSIN ADMINISTERED PER APR FOR C/O PERSISTENT COUGH. FRESH WATER PROVIDED. PT DENIES FURTHER NEEDS AT THIS TIME. ITEMS WITHIN REACH. BED LOCKED IN LOW POSITION WITH BEDRAILS UP X2. CALL WHEATLEY WITHIN REACH, AGREES TO CALL PRN.
[2019-08-04] VITALS (18 sets, daily range): BP systolic 96–151; BP diastolic 51–86
--- NOTE | 2019-08-04 00:05 | NUR ---
PT RESTING COMFORTABLY, NO CHANGES IN ASSESSMENT. DENIES NEEDS @ THIS TIME. ITEMS REMAIN WITHIN REACH. BED REMAINS LOCKED IN LOW POSITION W/ BEDRAILS UP X2. CALL WHEATLEY REMAINS WITHIN REACH. AGREES TO CALL PRN.
--- NOTE | 2019-08-04 03:20 | NUR ---
PT APPEARS TO BE SLEEPING COMFORTABLY. NO APPARENT DISTRESS. RESPIRATIONS REGULAR AND UNLABORED. ITEMS REMAIN WITHIN REACH. BED REMAINS LOCKED IN LOW POSITION W/ BEDRAILS UP X2. CALL WHEATLEY REMAINS WITHIN REACH. AGREES TO CALL PRN.
--- NOTE | 2019-08-04 06:14 | NUR ---
LABWORK DRAWN AND SENT TO LAB. PRN ROBITUSSIN GIVEN FOR C/O COUGH, SEE MAR. PHYSICAL ASSESMENT REMAINS UNCHANGED. PT DENIES NEEDS @ THIS TIME. ITEMS REMAIN WITHIN REACH. BED REMAINS LOCKED IN LOW POSITION W/ BEDRAILS UP X2. CALL WHEATLEY REMAINS WITHIN REACH. AGREES TO CALL PRN.
[2019-08-04 06:15] LABS: HEMATOCRIT 39.7 % (39.0-50.0); HEMOGLOBIN 12.8 g/dl (14.0-18.0); IMMATURE GRANULOCYTES 4.4 % (0.0-5.0); MEAN CELL VOLUME 79.6 fL CALC (80.0-100.0); MEAN CORPUSCULAR HGB 25.7 pG CALC (26.0-32.0); MEAN CORPUSCULAR HGB CONC 32.2 g/dL CAL (32.0-36.0); NEUT# 6.7 thou/uL (1.82-7.42); RED BLOOD COUNT 4.99 mill/uL (4.70-6.10); RED CELL DISTRI WIDTH 14.2 % (11.5-15.5)
--- NOTE | 2019-08-04 07:02 | NUR ---
RECVD REPORT FROM SUDARSHAN HAMMONDS @START OF SHIFT
[2019-08-04 07:10] LABS: ANION GAP 11 (6-22 (CALC)); BUN 19 mg/dL (9-20); BUN/CREATININE RATIO 29 (12-20 (CALC)); CARBON DIOXIDE 24 mmol/l (22-30); CHLORIDE 103 mmol/l (95-108); CREATININE 0.6 mg/dL (0.7-1.3); GFR > 60 ML/MIN (>=60 (CALC)); GFR FOR AFR.AMER. > 60 ML/MIN (>=60 (CALC)); POTASSIUM 4.4 mmol/l (3.5-5.1); SODIUM 134 mmol/l (137-146)
--- NOTE | 2019-08-04 07:10 | NUR ---
PT SLEEPING IN PRONE POSITION. NO S/S OF DISTRESS. WILL CONTINUE TO MONITOR.
--- NOTE | 2019-08-04 07:30 | NUR ---
AM ASSESSMENT COMPLETE. NC TITRATED DOWN TO 5L NC; O2 89-92%. PT SAT UP FOR BREAKFAST. DENIES PAIN. AFEBRILE. WILL CONTINUE TO MONITOR.
--- NOTE | 2019-08-04 09:25 | NUR ---
DR BISHOP @BEDSIDE FOR ASSESSMENT, W/[facility] STAFF ANTOINERN TRANSLATING, DISCUSSING POC & TEST RESULTS.
--- NOTE | 2019-08-04 09:53 | NUR ---
@BEDSIDE FOR AM MEDS. PT STATES "MAYBE BATH LATER THIS AFTERNOON". BREATHING EVEN/UNLABORED. MEDICATED FOR FREQUENT COUGH.
--- NOTE | 2019-08-04 11:30 | NUR ---
@BEDSIDE TO DELIVER PTS LUNCH. HANDED PT ONE OF HIS PERSONAL GUAVA JUICES. NO OTHER NEEDS/CONCERNS AT THIS TIME. BREATHING EVEN/UNLABORED, ON 5L NC. C/O FREQUENT COUGH.
--- NOTE | 2019-08-04 13:08 | NUR ---
@BEDSIDE TO START IV ABX. PT LAYING IN PRONE POSITION, FREQUENT COUGHS. WILL CONTINUE TO MONITOR.
--- NOTE | 2019-08-04 13:37 | NUR ---
PT OBSERVED SITTING ON SIDE OF BED.
--- NOTE | 2019-08-04 14:32 | NUR ---
PHYSICAL THERAPY @BEDSIDE.
--- NOTE | 2019-08-04 15:24 | NUR ---
PT LAYING IN BED, ON RIGHT SIDE, WATCHING TV. NO S/S OF DISTRESS. CALLBELL W/IN REACH. WILL CONTINUE TO MONITOR.
--- NOTE | 2019-08-04 19:00 | NUR ---
PT IS AWAKE, ORIENTED X4. NURSING ASSESSMENT PERFORMED. ON 5 L/MIN NC, SATS 94%. SOB NOTED WITH EXERTION ONLY. PRODUCTIVE COUGH, SEE CHARTING DOCUMENTATION. RAC IV INTACT, NS FLSUHING AT 10 ML/HR. SR ON TELEMETRY. AFEBRILE. BP WNL. NO ACUTE DISTRESS SHOWN. NO COMPLAINTS OF PAIN. PRN COUGH MED GIVEN FOR ACTIVE COUGHING NOW. BSC AT BEDSIDE AND URINAL WELL. POC DISCUSSED, PATIENT UNDERSTANDS AND AGREES. ALL QUESTIONS ANSWERED. USED HIS INCENTIVE SPIROMETER PROPERLY AND DID MEET HIS GOAL SET AT 1500. SELF REPOSITIONS. CALL LIGHT WITHIN REACH.
--- NOTE | 2019-08-04 21:04 | NUR ---
patient tolerates bedtime meds. has productive cough. no needs at this time. watches tv. reminded him to lay prone when ready to go to sleep, pt agrees. emptied 400 ml from urinal, urine is yellow and clear.
[2019-08-05] VITALS (12 sets, daily range): BP systolic 99–124; BP diastolic 51–80
--- NOTE | 2019-08-05 00:15 | NUR ---
PT'S O2 WEANED TO 4 L/MIN NC. SATS 93%-94%. ENCOURAGED PRONE POSITIONING. NOW LAYS PRONE, DOES BECOME SOB WITH EXERTION, HAS INTERMITTENT COUGH. NO NEEDS AT THIS TIME. CALL LIGHT WITHIN REACH.
--- NOTE | 2019-08-05 05:30 | NUR ---
PT ABLE TO TOERATE BLOOD WORK DRAW. AFEBRILE. AWAKE, SITS UP 30 DEGREES, TURNS TV ON. NO ACUTE DISTRESS NOTED, DOES HAVE PRODUCTIVE COUGHING, REFUSES COUGH MED AT THIS TIME. URINALS EMPTIED. ALSO REPORTED HE HAD A LOOSE TOOTH IN THE BACK OF HIS LEFT JAW AND THAT IT FELL OFF LAST NIGHT. I INSPECTED MOUTH, NO DRAINAGE NOTED AT SITE, PT REPORTS HE FEELS A BIG RELIEF SINCE AT TIMES IT WOULD CAUSE HIM PAIN. NO OTHER NEEDS AT THIS TIME. CALL LIGHT WITHIN REACH.
[2019-08-05 06:21] LABS: HEMATOCRIT 42.9 % (39.0-50.0); HEMOGLOBIN 13.8 g/dl (14.0-18.0); IMMATURE GRANULOCYTES 3.5 % (0.0-5.0); MEAN CELL VOLUME 79.6 fL CALC (80.0-100.0); MEAN CORPUSCULAR HGB 25.6 pG CALC (26.0-32.0); MEAN CORPUSCULAR HGB CONC 32.2 g/dL CAL (32.0-36.0); NEUT# 7.04 thou/uL (1.82-7.42); RED BLOOD COUNT 5.39 mill/uL (4.70-6.10); RED CELL DISTRI WIDTH 14.5 % (11.5-15.5)
[2019-08-05 06:28] LABS: ALBUMIN 2.9 g/dL (3.2-5.0); ALKALINE PHOSPHATASE 213 u/l (38-126); ANION GAP 10 (6-22 (CALC)); BILIRUBIN, TOTAL 0.6 mg/dL (0.0-1.4); BUN 16 mg/dL (9-20); BUN/CREATININE RATIO 27 (12-20 (CALC)); C-REACTIVE PROTEIN 1.9 mg/dL (0-0.9); CARBON DIOXIDE 24 mmol/l (22-30); CHLORIDE 102 mmol/l (95-108); CREATININE 0.6 mg/dL (0.7-1.3); GFR > 60 ML/MIN (>=60 (CALC)); GFR FOR AFR.AMER. > 60 ML/MIN (>=60 (CALC)); POTASSIUM 4.8 mmol/l (3.5-5.1); SGOT/AST 81 u/l (17-59); SODIUM 132 mmol/l (137-146)
--- NOTE | 2019-08-05 06:45 | NUR ---
REPORT RECEIVED FROM JAS HEATON.
--- NOTE | 2019-08-05 07:00 | NUR ---
PT RESTING IN BED WATCHING TV. PT IS ALERT AND ORIENTED X3. SHIFT ASSESSMENT COMPLETED WITH JAS HEATON FOR TRANSLATION. ADDRESS OBTAINED FOR [facility]. INFECTION CONTROL NOTIFIED AND WILL NOTIFY MAY WITH [facility]. IV PATENT X1. PT REQUESTED COUGH MED. WILL BRING IN WITH AM MEAL. CALL LIGHT IN REACH. EXPLAINED PLAN FOR THE DAY. PT VERBALIZED UNDERSTANDING. WILL CONTINUE TO MONITOR.
--- NOTE | 2019-08-05 07:40 | NUR ---
PT SET UP FOR AM MEAL
--- NOTE | 2019-08-05 08:40 | NUR ---
PHONED May AT [facility] AND NOTIFIED OF ADDRESS
--- NOTE | 2019-08-05 09:30 | NUR ---
PT RESTING IN BED AWAKE AND WATCHING TV. RESP ARE EVEN AND UNLABORED. NO DISTRESS NOTED. VSS ON MONITOR. CALL LIGHT IN REACH. WILL CONTINUE TO MONITOR.
--- NOTE | 2019-08-05 10:05 | NUR ---
DR BISHOP AT BEDSIDE AT THIS TIME.
--- NOTE | 2019-08-05 11:30 | NUR ---
PT SET UP FOR NOON MEAL.
--- NOTE | 2019-08-05 12:30 | NUR ---
PT RESTING IN BED WATCHING TV. RESP ARE EVEN AND UNLABORED. NO DISTRESS NOTED. CALL LIGHT IN REACH. WILL CONTINUE TO MONITOR.
--- NOTE | 2019-08-05 14:00 | NUR ---
PT RESTING IN BED WATCHING TV. RESP ARE EVEN AND UNLABORED. NO DISTRESS NOTED. CALL LIGHT IN REACH. WILL CONTINUE TO MONITOR.
--- NOTE | 2019-08-05 15:57 | NUR ---
PT RESTING IN BED. RESP ARE EVEN AND UNLABORED. CALL LIGHT IN REACH. WILL CONTINUE TO MONITOR.
--- NOTE | 2019-08-05 17:30 | NUR ---
pt set up for pm meal.
--- NOTE | 2019-08-05 17:58 | NUR ---
PT SITTING UP ON SIDE OF BED WATCHING TV. RESP ARE EVEN AND UNLABORED. NO DSITRESS NOTED. CALL LIGHT IN REACH. WILL CONTINUE TO MONITOR
--- NOTE | 2019-08-05 19:15 | NUR ---
REPORT GIVEN BY REID HEATON. PATIENT LAYING IN BED IN THE PRONE POSTISION. RESP EVEN AND UNLABORED, 4L O2 VIA NC. NO S/S OF DISTRESS NOTED. IS AT BEDSIDE AND PATIENT EDUCATED ON USE. PLAN OF CARE DISCUSSED. PATIENT INFORMED TO CALL WITH ANY QUESTIONS OR CONCERNS. WILL CONTIUNE TO [place].
--- NOTE | 2019-08-05 21:30 | NUR ---
PM MEDICATIONS GIVEN. ALL NEEDS MET AT THIS TIME. NO S/S OF DISTRESS NOTED.
--- NOTE | 2019-08-05 23:57 | NUR ---
PATIENT RESTING WITH EYES CLOSED IN THE PRONE POSTISION. RESP EVEN AND UNLABORED. NO S/S OF DISTRESS NOTED.
[2019-08-06] VITALS (10 sets, daily range): BP systolic 103–126; BP diastolic 67–82
--- NOTE | 2019-08-06 02:00 | NUR ---
PATIENT RESTING WITH EYES CLOSED. RESP EVEN AND UNLABORED. NO S/S OF DISTRESS NOTED.
--- NOTE | 2019-08-06 04:16 | NUR ---
PATIENT RESTING WITH EYES CLOSED. RESP EVEN AND UNLAOBRED. NO S/S OF DISTRESS NOTED.
--- NOTE | 2019-08-06 05:26 | NUR ---
MORNING LABS DRAWN, NEW IV STARTED:20 R AC. PATIENT HAD A BM AND 600 ML OF URINE DURING THE NIGHT. RESP EVEN AND UNLABORED. NO S/S OF DISTRESS NOTED.
[2019-08-06 05:32] LABS: HEMATOCRIT 48.6 % (39.0-50.0); HEMOGLOBIN 15.4 g/dl (14.0-18.0); IMMATURE GRANULOCYTES 2.9 % (0.0-5.0); MEAN CELL VOLUME 80.9 fL CALC (80.0-100.0); MEAN CORPUSCULAR HGB 25.6 pG CALC (26.0-32.0); MEAN CORPUSCULAR HGB CONC 31.7 g/dL CAL (32.0-36.0); NEUT# 8.75 thou/uL (1.82-7.42); RED BLOOD COUNT 6.01 mill/uL (4.70-6.10); RED CELL DISTRI WIDTH 15.9 % (11.5-15.5)
[2019-08-06 06:03] LABS: ALBUMIN 3.3 g/dL (3.2-5.0); ALKALINE PHOSPHATASE 206 u/l (38-126); ANION GAP 11 (6-22 (CALC)); BILIRUBIN, TOTAL 0.6 mg/dL (0.0-1.4); BUN 20 mg/dL (9-20); BUN/CREATININE RATIO 29 (12-20 (CALC)); C-REACTIVE PROTEIN 1.1 mg/dL (0-0.9); CARBON DIOXIDE 27 mmol/l (22-30); CHLORIDE 100 mmol/l (95-108); CREATININE 0.7 mg/dL (0.7-1.3); GFR > 60 ML/MIN (>=60 (CALC)); GFR FOR AFR.AMER. > 60 ML/MIN (>=60 (CALC)); POTASSIUM 4.4 mmol/l (3.5-5.1); SGOT/AST 68 u/l (17-59); SODIUM 133 mmol/l (137-146); TOTAL PROTEIN 6.5 g/dL (6.3-8.2)
--- NOTE | 2019-08-06 06:45 | NUR ---
REPORT RECEIVED FROM SHREYA HEATON. CARE ASSUMED.
--- NOTE | 2019-08-06 07:30 | NUR ---
PT RESTING IN BED AWAKE. PT IS ALERT AND ORIENTED X3. SHIFT ASSESSMENT COMPLETED AT THIS TIME. IV PATENT X1. O2 NC DECREASED TO 3L AT THIS TIME PT REMAINS O2 SATS 92%>. PT SET UP FOR AM MEAL AT THIS TIME. CALL LIGHT IN REACH. WILL CONTINUE TO MONITOR.
--- NOTE | 2019-08-06 08:45 | NUR ---
PT PROVIDED HYGIENE CARE AND LINENS CHANGED. AM MEDICATIONS PRVIDED. ROOM CLEANED.
--- NOTE | 2019-08-06 09:15 | NUR ---
PT ASSISTED TO BEDSIDE CHAIR. O2 DECREASED TO 2L NC O2 SATS 96%.
--- NOTE | 2019-08-06 10:00 | NUR ---
dr alston at [facility]
--- NOTE | 2019-08-06 11:02 | NUR ---
PT SITTING UP IN CHAIR IN ROOM WATCHING TV. RESP ARE EVEN AND UNLABORED. NO DISTRESS NOTED. CALL LIGHT IN REACH. VSS ON MONITOR. WILL CONTINUE TO MONITOR.
--- NOTE | 2019-08-06 11:45 | NUR ---
PT SET UP FOR NOON MEAL
--- NOTE | 2019-08-06 12:13 | NUR ---
PT SITTING UP IN CHAIR WATCHING TV. RESP ARE EVEN AND UNLABORED. NO DISTRESS NOTED. CALL LIGHT IN REACH. WILL CONTINUE TO MONITOR.
--- NOTE | 2019-08-06 12:45 | NUR ---
REPORT CALLED TO ISA ELMORE ON [facility]
--- NOTE | 2019-08-06 13:09 | NUR ---
PT ARRIVED TO [facility] VIA WHEELCHAIR, PT ALERT AND ORIENTED X3, ORIENTED PT TO ROOM AND CALL LIGHT, DISCUSSED POC. 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 ASSESSMENT COMPLETED, 02 2L NC, CALL LIGHT IN REACH,CONTINUE TO MONITOR.
--- NOTE | 2019-08-06 13:15 | NUR ---
[facility] ROOM 291 VIA WHEELCHAIR ACCOMPANIED BY THIS NURSE. ASSISTED TO BED. PT TOLERATED TRANSFER WELL.
--- NOTE | 2019-08-06 16:20 | NUR ---
PT RESTING IN BED WATCHING TV, NO SIGNS OF DISTRESS NOTED, RESP EVEN AND UNLABORED. PT MEDICATED FOR COUGH, CALL LIGHT IN REACH,CONTINUE TO MONITOR.
--- NOTE | 2019-08-06 17:23 | NUR ---
PT C/O PAIN, PT MEDICATED WITH LORTAB. COOL WASHCLOTH PROVIDED. CALL LIGHT IN REACH,CONTINUE TO MONITOR.
--- NOTE | 2019-08-06 20:15 | NUR ---
UPON ENTERING ROOM PT FOUND RESTING IN BED, WATCHING TV. NO APPARENT DISTRESS. PHYSICAL ASSESMENT COMPLETE. VS TAKEN BY Param URRUTIA CNA @ [phone] ASSESSED. PT AFEBRILE AND HEMODYNAMICALLY STABLE. PLAN OF CARE REVIEWED. PT VERBALIZES UNDERSTANDING AND DENIES QUESTIONS. MEDICATIONS ADMINISTERED PER MAR. PT DECLINES PRN ROBITUSSIN, STATES HE BELEIVES IT MAKES HIM COUGH WORSE. PT DENIES FURTHER NEEDS AT THIS TIME. ITEMS WITHIN REACH. BED LOCKED IN LOW POSITION WITH BEDRAILS UP X2. CALL WHEATLEY WITHIN REACH, AGREES TO CALL PRN.
--- NOTE | 2019-08-07 00:51 | NUR ---
PT SLEEPING, APPEARS COMFORTABLE AND IN NO APPARENT DISTRESS. RESPIRATIONS REGULAR AND UNLABORED. CALL WHEAT[place] REMAINS WITHIN REACH. VS TAKEN BY Param URRUTIA CNA @ [id number] ASSESSED. PT REMAINS AFEBRILE AND HEMODYNAMICALLY STABLE.
[2019-08-07 04:03] VITALS: BP 110/68
--- NOTE | 2019-08-07 04:53 | NUR ---
PHYSICAL ASSESMENT REMAINS UNCHANGED FROM INITIAL ASSESMENT AT BEGINNING OF SHIFT. VS TAKEN BY Param URRUTIA CNA @ [id number] ASSESSED. PT REMAINS AFEBRILE AND HEMODYNAMICALLY STABLE. RESTING IN BED, NO APPARENT DISTRESS. DENIES NEEDS @ THIS TIME. CALL WHEAT[place] REMAINS WITHIN REACH, AGREES TO CALL PRN.
[2019-08-07 08:19] VITALS: BP 87/57
--- NOTE | 2019-08-07 08:19 | NUR ---
PT RESTING IN BED, NO SIGNS OF DISTRESS NOTED, RESP EVEN AND UNLABORED. PT ALERT AND ORIENTED X3, VITALS OBTAINED. ASSESSMENT COMPLETED, DISCUSSED POC AND TITRATION OF O2, PT 97% ON 2L NC. 02 DECREASED TO 1L PT SPO2 94%. CALL LIGHT IN REACH,CONTINUE TO MONITOR.
--- NOTE | 2019-08-07 10:40 | NUR ---
PT RESTING IN BED, PT HAS HAD 02 OFF FOR 30MIN FOR WALK TEST. PT AGREES, INITIAL SPO2 AT REST ON RA 92%, ONCE PT BEGAN TO AMBULATE AROUND ROOM SPO2 DROPPED TO 87%, REPLACED O2 NC AND CONTINUED AMBULATED PT TOLERATED WELL SPO2 92%. AT REST ONCE WALK TEST COMPLETE PT 02 @ 1 L SPO2 94%. NO SIGNS OF DISTRESS NOTED, RESP EVEN AND UNLABORED. CALL LIGHT IN REACH,CONTINUE TO MONITOR. MD AND CASE MANAGEMENT PROVIDED WITH WALK TEST RESULTS.
[2019-08-07 11:57] VITALS: BP 107/66
--- NOTE | 2019-08-07 14:35 | NUR ---
PT MEDICATED FOR HEADACHE, PT ALSO C/O NAUSEA AND CONSTIPATION. PT MEDICATED PER APR. CALL LIGHT IN REACH,CONTINUE TO MONITOR.
--- NOTE | 2019-08-07 15:58 | NUR ---
PT RESTING IN BED, NO SIGNS OF DISTRESS NOTED, RESP EVEN AND UNLABORED. PT VOICES NO NEEDS OR COMPLAINTS AT THIS TIME. CALL LIGHT IN REACH,CONTINUE TO MONITOR.
[2019-08-07 16:10] VITALS: BP 123/77
--- NOTE | 2019-08-07 17:45 | NUR ---
DINNER TRAY PROVIDED PT VOICES NO COMPLAINTS,CALL LIGHT IN REACH,CONTINUE TO MONITOR.
[2019-08-07 19:13] VITALS: BP 114/68
--- NOTE | 2019-08-07 21:32 | NUR ---
PT MEDICATED ORDERS PROVIDE. PT COUGHING DRY HACKING NON-PRODUCTIVE COUGH WHILE I WAS IN THE ROOM. NO OTHER S/O DISTRESS NOTED. OXYGEN ON NC@ 1L. ASSESSMENT COMPLETED AT THIS TIME. NO EDEMA NOTED. LUNG SOUNDS DIM. PT DENIES HAVING BM THIS DAY, DENIES DIFFICULTY URINATING. PT ENCOURAGED TO CALL NEEDS ARISE.
--- NOTE | 2019-08-07 23:43 | NUR ---
PT SLEEPING, NO S/O DISTRESS NOTED. CALL LIGHT AT SIDE.
[2019-08-07 23:50] VITALS: BP 110/68
[2019-08-08 04:30] VITALS: BP 127/78
--- NOTE | 2019-08-08 05:00 | NUR ---
PT SLEEPING, AIDE IN W/PT. NO S/O DISTRESS NOTED.
[2019-08-08 07:51] VITALS: BP 116/73
--- NOTE | 2019-08-08 09:00 | NUR ---
PT SEEN AWAKE, ALERT, AMBULATORY IN ROOM, USING NC AT 1 LPM. LUNGS CLEAR. BM THIS MORNING. PT AWARE OF POSSIBLE DISCHARGE HOME TODAY WITH HOME OXYGEN. NO EVIDENCE OF DISTRESS NOTED.
[2019-08-08 11:29] VITALS: BP 114/60
--- NOTE | 2019-08-08 13:41 | NUR ---
PT HAS BEEN DISCHARGED TO HOME, WAITS ON OXYGEN TO ARRIVE BEFORE HE LEAVES. PT VERBALIZES UNDERSTANDING OF DC INSTRUCTIONS, IV REMOVED, TELE OFF. NO ACUTE DISTRESS NOTED.
--- NOTE | 2019-08-08 15:09 | NUR ---
PT HAS BEEN DISCHARGED TO HOME AFTER OXYGEN CANNISTER ARRIVED. PT WAS TAKEN TO [facility] OUTSIDE WHERE HE WAITS FOR TAXI TO ARRIVE.
== END 2019-08-08 14:50 | disposition home or self-care (01) | DRG 177 ==
LOC: ED 05:44 → ED-I 08:50 → ED 09:04 → MS2 09:05 → ED-I 09:05 → MS2 09:30 → ICU 07-31 11:36 → MS2 08-06 13:07
PROVIDERS: Emergency Medicine; Family Medicine; Nurse Practitioner Family; ADMIT Internal Medicine; ATTEND Internal Medicine
DX: U07.1 COVID-19 (principal); J12.89 Other viral pneumonia; J96.01 Acute respiratory failure with hypoxia; I10 Essential (primary) hypertension; I25.10 Atherosclerotic heart disease of native coronary artery without angina pectoris; E78.5 Hyperlipidemia, unspecified; F32.9 Major depressive disorder, single episode, unspecified; Z95.5 Presence of coronary angioplasty implant and graft; Z79.02 Long term (current) use of antithrombotics/antiplatelets; Z79.82 Long term (current) use of aspirin
CPT/HCPCS: J1650; Q3014; Q9967

== ENCOUNTER → 2020-11-02 | Outpatient (REF) | payer MEDICARE ==
[~2020-11-02] MED LIST changes: +SERTRALINE25 MG PO
== END | disposition home or self-care (01) ==
LOC: LAB 09:02
PROVIDERS: ATTEND Family Medicine
DX: R73.09 Other abnormal glucose (principal)

== ENCOUNTER 2021-01-03 23:35 | Emergency (ER) | payer MEDICARE ==
[~2021-01-03] VITALS: Ht 160 cm; Wt 90.0 kg
[2021-01-03] MEDS ORDERED: CORTISPORIN OTI10 M2 AD (23:48)
[2021-01-03] MEDS ORDERED: NITROGLYCER0.4 MG SL (23:59)
[2021-01-04 00:23] VITALS: BP 140/79
== END 2021-01-04 00:45 | disposition home or self-care (01) ==
LOC: ED 23:35
DX: H60.91 Unspecified otitis externa, right ear (principal); I10 Essential (primary) hypertension; E78.00 Pure hypercholesterolemia, unspecified; Z95.5 Presence of coronary angioplasty implant and graft

== ENCOUNTER 2021-10-18 10:48 | Emergency (ER) | payer MEDICARE ==
[~2021-10-18] VITALS: Ht 160 cm; Wt 96.0 kg
[2021-10-18] VITALS (14 sets, daily range): BP systolic 97–138; BP diastolic 47–74
[~2021-10-18 10:48] MED LIST changes: +CORTISPORIN OTI10 M2 AD; +NITROGLYCER0.4 MG SL
[2021-10-18 11:04] LABS: HEMATOCRIT 42.7 % (39.0-50.0); HEMOGLOBIN 13.8 g/dl (14.0-18.0); IMMATURE GRANULOCYTES 0.2 % (0.0-5.0); MEAN CELL VOLUME 82.8 fL CALC (80.0-100.0); MEAN CORPUSCULAR HGB 26.7 pG CALC (26.0-32.0); MEAN CORPUSCULAR HGB CONC 32.3 g/dL CAL (32.0-36.0); NEUT# 4.5 thou/uL (1.82-7.42); RED BLOOD COUNT 5.16 mill/uL (4.70-6.10); RED CELL DISTRI WIDTH 14.3 % (11.5-15.5)
[2021-10-18] MEDS ORDERED: GLYNASE1.5 MG PO (11:10)
[2021-10-18 11:23] LABS: ALBUMIN 4.3 g/dL (3.2-5.0); ALKALINE PHOSPHATASE 78 u/l (38-126); ANION GAP 13 (6-22 (CALC)); BILIRUBIN, TOTAL 0.9 mg/dL (0.0-1.4); BUN 15 mg/dL (9-20); BUN/CREATININE RATIO 20 (12-20 (CALC)); CARBON DIOXIDE 22 mmol/l (22-30); CHLORIDE 109 mmol/l (95-108); CREATININE 0.8 mg/dL (0.7-1.3); GFR FOR AFR.AMER. > 60 ML/MIN (>=60 (CALC)); GFR OTHER RACES > 60 ML/MIN (>=60 (CALC)); POTASSIUM 4.1 mmol/l (3.5-5.1); SGOT/AST 27 u/l (17-59); SODIUM 141 mmol/l (137-146); TOTAL PROTEIN 7.3 g/dL (6.3-8.2)
[2021-10-18] MEDS ORDERED: CEPHALEXIN500 M1 PO (12:47)
[2021-10-18] MEDS ORDERED: ZPAK PO (15:02)
[2021-10-18] MEDS ORDERED: AMOX/K CLAV875 M1 PO (15:02)
== END 2021-10-18 15:41 | disposition home or self-care (01) ==
LOC: ED 10:48
PROVIDERS: Family Medicine
DX: J18.9 Pneumonia, unspecified organism (principal); I10 Essential (primary) hypertension; E11.9 Type 2 diabetes mellitus without complications; E78.00 Pure hypercholesterolemia, unspecified; I25.2 Old myocardial infarction; Z95.5 Presence of coronary angioplasty implant and graft; Z79.84 Long term (current) use of oral hypoglycemic drugs; Z20.822 Contact with and (suspected) exposure to COVID-19
CPT/HCPCS: Q9967

== ENCOUNTER 2022-09-02 20:57 | Emergency (ER) | payer MEDICARE, MEDICAID ==
[~2022-09-02] VITALS: Ht 160 cm; Wt 104.0 kg
[~2022-09-02 20:57] MED LIST changes: +AMOX/K CLAV875 M1 PO; +CEPHALEXIN500 M1 PO; +GLYNASE1.5 MG PO; +ZPAK PO
[2022-09-02 21:03] VITALS: BP 145/71
[2022-09-02 21:15] VITALS: BP 144/67
[2022-09-02 21:27] LABS: BASO% 0.7 % (0-3); EOS% 1.8 % (0-8); HEMATOCRIT 44.6 % (39.0-50.0); HEMOGLOBIN 13.9 g/dl (14.0-18.0); LYMPH% 32.3 % (15-41); MEAN CELL VOLUME 83.8 fL CALC (80.0-100.0); MEAN CORPUSCULAR HGB 26.1 pG CALC (26.0-32.0); MEAN CORPUSCULAR HGB CONC 31.2 g/dL CAL (32.0-36.0); MONO% 8.6 % (2-13); NEUT# 3.79 thou/uL (1.82-7.42); NEUT% 56.6 % (42-76); RED BLOOD COUNT 5.32 mill/uL (4.70-6.10); RED CELL DISTRI WIDTH 14.7 % (11.5-15.5)
[2022-09-02 21:38] LABS: ALBUMIN 4.3 g/dL (3.2-5.0); ALKALINE PHOSPHATASE 114 u/l (38-126); AMYLASE 67 u/l (30-110); ANION GAP 15 (6-22 (CALC)); BILIRUBIN, TOTAL 0.8 mg/dL (0.2-1.3); BUN 22 mg/dL (8-23); BUN/CREATININE RATIO 23 (12-20 (CALC)); CARBON DIOXIDE 22 mmol/l (22-30); CHLORIDE 106 mmol/l (95-108); CREATININE 0.9 mg/dL (0.7-1.3); GFR FOR AFR.AMER. > 60 ML/MIN (>=60 (CALC)); GFR OTHER RACES > 60 ML/MIN (>=60 (CALC)); LIPASE 73 u/l (23-300); POTASSIUM 4.3 mmol/l (3.5-5.1); SGOT/AST 31 u/l (19-48); SODIUM 138 mmol/l (137-146); TOTAL PROTEIN 7.3 g/dL (6.3-8.2)
[2022-09-02 22:01] VITALS: BP 126/62
[2022-09-03 03:04] VITALS: BP 180/99
== END 2022-09-02 23:50 | disposition home or self-care (01) ==
LOC: ED 20:57
PROVIDERS: Emergency Medicine
DX: K80.20 Calculus of gallbladder without cholecystitis without obstruction (principal); E11.9 Type 2 diabetes mellitus without complications; I10 Essential (primary) hypertension; E78.00 Pure hypercholesterolemia, unspecified; Z79.84 Long term (current) use of oral hypoglycemic drugs; Z95.5 Presence of coronary angioplasty implant and graft
CPT/HCPCS: S0164